=== PATIENT | female | born 1995 | race Caucasian/White ===

== ENCOUNTER 2017-01-17 18:14 | Emergency (ER) | payer OTHER ==
[~2017-01-17] VITALS: Ht 160 cm; Wt 58.7 kg
[~2017-01-17 18:14] MED LIST: BCPILLS PO; HYOS0.3725 PO; LORA-741 PO
[2017-01-17 18:21] VITALS: TEMP 36.9; Ht 160 cm; Wt 58.7 kg
[2017-01-17 19:07] LABS: BASO % 0.7 %; BASO ABS # 0.06 K/uL (0-0.2); COMPLETE YES; HEMATOCRIT 41.7 % (37-47); IG% 0.1 %; LYMPH ABS # 2.17 K/uL (1.2-3.4); MEAN CELL VOLUME 89.3 fL (80-100); MEAN CORPUSCULAR HEMOGLOBIN 29.3 pg (25-34); MEAN CORPUSCULAR HGB CONC 32.9 g/dl (32-36); MEAN PLATELET VOLUME 11.1 fL (7.4-10.4); MONO % 9.6 %; NEUT % 60.6 %; PLATELET COUNT 284 K/uL (130-400); RED BLOOD COUNT 4.67 M/uL (4.2-5.4); WHITE BLOOD COUNT 8.04 K/uL (4.8-10.8)
[2017-01-17 19:24] LABS: BUN/CREATININE RATIO 18.3 (10-20); CALCIUM 9.3 mg/dl (8.5-10.1); CREATININE 0.78 mg/dl (0.60-1.20); POTASSIUM 3.8 mmol/L (3.5-5.1)
[2017-01-17 19:27] LABS: ALB/GLOB RATIO 1.1 (0.9-2)
[2017-01-17 19:57] LABS: URINE APPEARANCE CLEAR (CLEAR); URINE BILIRUBIN NEG (NEG); URINE COLOR YELLOW; URINE NITRITE NEG (NEG); UROBILINOGEN NEG (NEG); ZZUR CULT IF INDIC CLEAN CATCH NO
[2017-01-17 19:58] LABS: MANUAL MICROSCOPIC REQUIRED? NO; REVIEW REQ? NO
--- NOTE | 2017-01-17 20:31 | DIAGNOSTIC IMAGING REPORT ---
ULTRASOUND OF THE PELVIS CLINICAL HISTORY: Left pelvic pain. COMPARISON STUDY: No priors. TECHNIQUE: Real-time, grayscale, and color flow sonography of the pelvis is performed both transabdominally and endovaginally. Images are reviewed in the transverse and longitudinal planes. FINDINGS: Uterus: The uterus is normal in size and echotexture, measuring 7.9 x 3.6 x 4.8 cm. Endometrium: The endometrium is normal in appearance, and the endometrial stripe appears mildly thickened measuring up to 1.3 cm. Ovaries: The ovaries are normal in size and morphology. The right ovary measures 3.9 x 1.5 x 2.6 cm and the left ovary measures 4.7 x 4.2 x 4.0 cm. There are bilateral ovarian follicles. There is a 4.5 cm complex/hemorrhagic cyst in the left ovary. Normal Doppler waveforms are shown within both ovaries. Pelvis: There is a small volume of free fluid in the cul-de-sac. No concerning adnexal lesion is seen. IMPRESSION: 1. There is a 4.5 cm complex/hemorrhagic cyst identified in the left ovary. There is no sonographic evidence of ovarian torsion at the time of examination. 2. There is a small volume of free fluid in the cul-de-sac, likely within physiologic limits. Electronically signed by: Terrell Strong M.D. 01/17/2017 8:30 PM Dictated Date/Time: 01/17/2017 8:27 PM
[2017-01-17 21:02] VITALS: BP 108/67; PULSE 78; O2SAT 100
--- NOTE | 2017-01-17 21:10 | EMERGENCY ROOM VISIT NOTE ---
History First contact with patient: 18:26 Chief Complaint: FLANK PAIN Stated Complaint: SHOOTING PAIN IN LOWER LEFT SIDE History of Present Illness The patient is a 21 year old female who presents to the Emergency Room with complaints of pain in her left lower abdomen. The patient states that she has had a gradually worsening pain in her left lower abdomen for the past 3 days. Her symptoms have been intermittent. She reports mild associated nausea, but no vomiting. She denies urinary symptoms, changes in bowel movements, vaginal discharge or fevers/chills. She was seen at [facility] and sent here for further evaluation. The patient has not been taking any medication for pain. She rates her current discomfort a 4/10. She reports a history of a "sensitive stomach" but denies any history of abdominal surgeries. She states that her menstrual periods are irregular and her last menstrual period was over one month ago. Review of Systems A complete 10 point review of systems was reviewed with the patient with pertinent positives and negatives as per history of present illness. All else were negative. Past Medical/Surgical History Medical Problems: (1) Food allergy Surgical Problems: (1) Status post tonsillectomy and adenoidectomy Social History Smoking Status: Never Smoker Alcohol Use: none Marital Status: single Housing Status: lives with roommate Occupation Status: [employer] student Current/Historical Medications No Active Prescriptions or Reported Meds Physical Exam Vital Signs Date Time Temp Pulse Resp B/P (MAP) Pulse Ox O2 Delivery O2 Flow Rate FiO2 01/17/17 21:02 78 18 108/67 100 Room Air 01/17/17 20:26 73 18 108/67 100 Room Air 01/17/17 18:21 36.9 95 20 112/76 100 Room Air Physical Exam VITALS: Vitals are noted on the nurse's note and reviewed by myself. Vital signs stable. GENERAL: This is a 21-year-old female, in no acute distress, nondiaphoretic, well-developed well-nourished. SKIN: Capillary reflex less than 2 seconds. HEENT: Normocephalic. PERRLA. Mucous membranes moist. Neck is supple without nuchal rigidity. HEART: Regular rate and rhythm without murmurs gallops or rubs. LUNGS: Clear to auscultation bilaterally without wheezes, rales or rhonchi. ABDOMEN: Positive bowel sounds x 4. Soft, mild tenderness to palpation in the left lower quadrant. No guarding or rebound tenderness. NEURO: Patient was alert and oriented to person place and time. Medical Decision & Procedures ER Provider Diagnostic Interpretation: ULTRASOUND OF THE PELVIS FINDINGS: Uterus: The uterus is normal in size and echotexture, measuring 7.9 x 3.6 x 4.8 cm. Endometrium: The endometrium is normal in appearance, and the endometrial stripe appears mildly thickened measuring up to 1.3 cm. Ovaries: The ovaries are normal in size and morphology. The right ovary measures 3.9 x 1.5 x 2.6 cm and the left ovary measures 4.7 x 4.2 x 4.0 cm. There are bilateral ovarian follicles. There is a 4.5 cm complex/hemorrhagic cyst in the left ovary. Normal Doppler waveforms are shown within both ovaries. Pelvis: There is a small volume of free fluid in the cul-de-sac. No concerning adnexal lesion is seen. IMPRESSION: 1. There is a 4.5 cm complex/hemorrhagic cyst identified in the left ovary. There is no sonographic evidence of ovarian torsion at the time of examination. 2. There is a small volume of free fluid in the cul-de-sac, likely within physiologic limits. Laboratory Results 01/17/17 18:45 Red Blood Count 4.67, Mean Corpuscular Volume 89.3, Mean Corpuscular Hemoglobin 29.3, Mean Corpuscular Hemoglobin Concent 32.9, Mean Platelet Volume 11.1, Neutrophils (%) (Auto) 60.6, Lymphocytes (%) (Auto) 27.0, Monocytes (%) (Auto) 9.6, Eosinophils (%) (Auto) 2.0, Basophils (%) (Auto) 0.7, Neutrophils # (Auto) 4.87, Lymphocytes # (Auto) 2.17, Monocytes # (Auto) 0.77, Eosinophils # (Auto) 0.16, Basophils # (Auto) 0.06 01/17/17 18:45 Test 01/17/17 18:45 01/17/17 19:30 White Blood Count 8.04 K/uL (4.8-10.8) Red Blood Count 4.67 M/uL (4.2-5.4) Hemoglobin 13.7 g/dL (12.0-16.0) Hematocrit 41.7 % (37-47) Mean Corpuscular Volume 89.3 fL (80-100) Mean Corpuscular Hemoglobin 29.3 pg (25-34) Mean Corpuscular Hemoglobin Concent 32.9 g/dl (32-36) Platelet Count 284 K/uL (130-400) Mean Platelet Volume 11.1 fL (7.4-10.4) Neutrophils (%) (Auto) 60.6 % Lymphocytes (%) (Auto) 27.0 % Monocytes (%) (Auto) 9.6 % Eosinophils (%) (Auto) 2.0 % Basophils (%) (Auto) 0.7 % Neutrophils # (Auto) 4.87 K/uL (1.4-6.5) Lymphocytes # (Auto) 2.17 K/uL (1.2-3.4) Monocytes # (Auto) 0.77 K/uL (0.11-0.59) Eosinophils # (Auto) 0.16 K/uL (0-0.5) Basophils # (Auto) 0.06 K/uL (0-0.2) RDW Standard Deviation 43.6 fL (36.4-46.3) RDW Coefficient of Variation 13.4 % (11.5-14.5) Immature Granulocyte % (Auto) 0.1 % Immature Granulocyte # (Auto) 0.01 K/uL (0.00-0.02) Anion Gap 8.0 mmol/L (3-11) Est Creatinine Clear Calc Drug Dose 95.1 ml/min Estimated GFR () 126.8 Estimated GFR (Non- 109.4 BUN/Creatinine Ratio 18.3 (10-20) Calcium Level 9.3 mg/dl (8.5-10.1) Total Bilirubin 0.4 mg/dl (0.2-1) Aspartate Amino Transf (AST/SGOT) 16 U/L (15-37) Alanine Aminotransferase (ALT/SGPT) 19 U/L (12-78) Alkaline Phosphatase 70 U/L (45-117) Total Protein 7.3 gm/dl (6.4-8.2) Albumin 3.9 gm/dl (3.4-5.0) Globulin 3.4 gm/dl (2.5-4.0) Albumin/Globulin Ratio 1.1 (0.9-2) Lipase 226 U/L (73-393) Urine Color YELLOW Urine Appearance CLEAR (CLEAR) Urine pH 8.0 (4.5-7.5) Urine Specific [place] 1.010 (1.000-1.030) Urine Protein NEG (NEG) Urine Glucose (UA) NEG (NEG) Urine Ketones NEG (NEG) Urine Occult Blood NEG (NEG) Urine Nitrite NEG (NEG) Urine Bilirubin NEG (NEG) Urine Urobilinogen NEG (NEG) Urine Leukocyte Esterase TRACE (NEG) Urine WBC (Auto) 1-5 /hpf (0-5) Urine RBC (Auto) 0-4 /hpf (0-4) Urine Hyaline Casts (Auto) 0 /lpf (0-5) Urine Epithelial Cells (Auto) 5-10 /lpf (0-5) Urine Bacteria (Auto) NEG (NEG) Urine Test NEG (NEG) ED Course The patient was evaluated as above. Labs were drawn and IV access was obtained. Pelvic ultrasound was performed and read by radiology as above. Patient was reevaluated and findings were discussed. I spoke with the patient's mother with permission of the patient. Discharge instructions were reviewed with the patient. The patient verbalized understanding of my assessment and treatment plan and was discharged home in good condition. Medical Decision Differential diagnosis includes ovarian cyst, ovarian torsion, ectopic , PID, urinary tract infection, among others. The patient is a 21-year-old female who presents today complaining of left pelvic pain. Labs revealed no leukocytosis, anemia or concerning electrolyte abnormalities. Urinalysis was not suggestive of infection. Urine was negative. Pelvic ultrasound showed a left ovarian cyst which is likely because of the patient's pain. Findings and treatment plan were discussed with the patient and her mother. I encouraged the patient to follow-up with [facility]. She states she does have very heavy menstrual periods and may benefit from a control pill or other form of control. She was encouraged to use anti-inflammatories for pain. She was educated on symptoms which would necessitate return to the emergency department. Based on the patient's presentation and work up, I feel the patient is stable for outpatient treatment. The patient was educated to return to the emergency department for any worsening of their current condition or new/concerning symptoms. She will follow up with [facility]. Medication Reconcilliation Current Medication List: was personally reviewed by me Blood Pressure Screening Patient's blood pressure: Normal blood pressure Impression Primary Impression: Ovarian cyst Departure Information Dispostion Home / Self-Care Condition GOOD Prescriptions No Active Prescriptions or Reported Meds Referrals [facility] (PCP) Linad Oglesby M.D.([employer]/OB) Patient Instructions ED Cyst Ovarian, My [facility] Additional Instructions Ultrasound showed an ovarian cyst on the left side. This will likely resolve on its own, but you may need an ultrasound in a few months to recheck the ovaries. For pain control, you can use the following [id number] medicines (if >12 yo): - Regular strength (325mg/tab) Tylenol (acetaminophen) 2 tabs every 4-6 hours as needed. Do not exceed 12 tablets in a 24 hour period. Avoid taking more than 4 grams (4000 mg) of Tylenol per day. This includes any other sources of acetaminophen you may take on a regular basis. - Regular strength (200 mg/tab) Advil (ibuprofen) 3-4 tabs every 6 hours as needed. Do not exceed a dose of 3200 mg per day. You may apply a heating pad to the abdomen, which can help provide some relief. You should follow-up with [facility]. Call their office to schedule follow-up. Return here for significantly worsening pain, vomiting, or any other new/ concerning symptoms.
== END 2017-01-17 21:15 | disposition home or self-care (01) ==
LOC: C.EDB 18:16 → C.EDC 21:15
DX: N83.202 Unspecified ovarian cyst, left side (principal); Z98.890 Other specified postprocedural states; Z91.018 Allergy to other foods